=== PATIENT | male | born 1995 ===

== ENCOUNTER 2020-02-29 23:24 | Emergency (ER) | payer OTHER ==
[~2020-02-29] VITALS: Ht 175.3 cm; Wt 78.7 kg
[2020-03-01] MEDS ORDERED: LEVE500T53 PO (01:24)
[2020-03-01 01:59] LABS: GLUCOSE,POINT OF CARE 94 MG/DL (70-110)
[2020-03-01 02:27] VITALS: BP 111/66
== END 2020-03-01 03:20 | disposition home or self-care (01) ==
LOC: EMS 23:25
DX: F13.10 Sedative, hypnotic or anxiolytic abuse, uncomplicated (principal)
CPT/HCPCS: 82962; 99283; G0480